=== PATIENT | male | born 1990 | race Caucasian/White ===

== ENCOUNTER 2021-09-12 19:10 | Emergency (ER) | payer OTHER ==
[2021-09-12] MEDS ORDERED: BACTRIM DS TAB1 EACH PO (20:04)
== END 2021-09-12 20:44 | disposition home or self-care (01) ==
LOC: FER 19:10
DX: L02.811 Cutaneous abscess of head [any part, except face] (principal)
CPT/HCPCS: 87070; 87205; 99283